=== PATIENT | male | born 1965 | race Two or more races ===

== ENCOUNTER 2018-02-11 01:23 | Inpatient (IN) | payer OTHER ==
[~2018-02-11] VITALS: Ht 182.9 cm; Wt 99.8 kg
--- NOTE | 2018-02-11 01:23 | NUR ---
PT BIBRA from Home C/O Chest pain radiating to R arm, 45 min ago. Pt was given 2 nitro and 2 aspirin 162mg. Pt denies chest pain, states having a headache. AAxO4. NAD. Respirations even and unlabored. PT put on the tele monitor and pulse ox. Pending eval from ER .
[2018-02-11] MEDS ORDERED: NITROGLYCERIN PACKET 1 GM PACKET ONE (02:23)
--- NOTE | 2018-02-11 02:24 | NUR ---
BLOOD DRAWN BY PISTON MAKER.
[2018-02-11] MEDS ORDERED: NITROGLYCERIN PACKET 1 GM PACKET TOP ONE (02:30)
--- NOTE | 2018-02-11 02:35 | NUR ---
XRAY AT BEDSIDE.
[2018-02-11 02:37] LABS: CALCIUM, SERUM 8.3 mg/dL (8.5-10.1); CARBON DIOXIDE 30 mmol/L (21-32); CHLORIDE 105 mmol/L (98-107); CREATININE 0.8 mg/dL (0.6-1.3); GLUCOSE 191 mg/dL (74-106); POTASSIUM 3.7 mmol/L (3.5-5.1); SODIUM SERUM 142 mmol/L (136-145); UREA NITROGEN, BLOOD 15 mg/dL (7-18)
[2018-02-11 02:46] LABS: BASOPHILS # (AUTO) 0.1 /CMM (0.0-0.2); BASOPHILS % (AUTO) 0.8 % (0.0-2.0); HEMATOCRIT 44 % (39-51); HEMOGLOBIN 14.4 g/dL (13.5-17.5); LYMPHOCYTES # (AUTO) 2.6 /CMM (0.8-4.8); LYMPHOCYTES % (AUTO) 25.7 % (20.0-44.0); MEAN CORPUSCULAR HGB CONC 33 g/dl (31.0-36.0); MEAN CORPUSCULAR VOLUME 80 fL (80-96); MONOCYTES # (AUTO) 0.7 /CMM (0.1-1.30); MONOCYTES % (AUTO) 6.5 % (2.0-12.0); NEUTROPHILS # (AUTO) 6.6 /CMM (1.8-8.9); PLATELET COUNT (AUTO) 238 /CMM (150-450); RED BLOOD CELL COUNT(AUTO) 5.44 MIL/uL (4.5-6.0); WHITE BLOOD COUNT (AUTO) 10.1 K/uL (4.3-11.0)
--- NOTE | 2018-02-11 02:55 | NUR ---
Patient is resting comfortably in bed with eyes closed. Easily aroused. VSS. No Chest pain. NAD noted.
--- NOTE | 2018-02-11 03:15 | NUR ---
Patient is resting comfortably in bed with eyes closed. Easily aroused. VSS. NAD noted. Awaiting disposition.
--- NOTE | 2018-02-11 03:30 | NUR ---
MD at bedside discussing results and disposition.
--- NOTE | 2018-02-11 04:10 | NUR ---
PT complaining of 5/10 chest pain, non-radiating. MD notified Orders recieved.
[2018-02-11] MEDS ORDERED: ONDANSETRON HCL/PF 4 MG/2 ML VIAL ONE (04:18)
[2018-02-11] MEDS ORDERED: HYDROMORPHONE INJ 2 MG/ML DISP.SYRIN ONE (04:19)
[2018-02-11] MEDS ORDERED: MORPHINE SULFATE INJ 2 MG/ML DISP.SYRIN IV ONE (04:30)
[2018-02-11] MEDS ORDERED: HYDROMORPHONE INJ 0.5 MG/0.5 ML SYRINGE IV ONE (04:30)
[2018-02-11] MEDS ORDERED: ONDANSETRON HCL/PF - ER 4 MG/2 ML VIAL IV ONE (04:30)
--- NOTE | 2018-02-11 04:42 | NUR ---
Report given to Demetrice for ZACARIAS.
[2018-02-11 05:00] VITALS: BP 123/59
--- NOTE | 2018-02-11 05:00 | NUR ---
RN ADMITTING NOTES RECEIVED REPORT FROM FINANCIAL ANALYSIS CONSULTANT PATEL. Pt ARRIVED TO THE FLOOR VIA GURNEY. WAS ABLE TO AMBULATE TO ROOM BED WITH STEADY GAIT. NO S/S OF ACUTE DISTRESS OR SOB NOTED. Pt IS NOT C/O CP AT THIS MOMENT. Pt IS A/OX4, VERBAL, ABLE TO MAKE NEEDS KNOWN. IV ACCESS ON LFA #18G, SL. ON TELE MONITOR: SR 72. SAFETY MEASURES IN PLACE. BED LOW, LOCKED, HOB ELEVATED, SIDE RAILS UP, CALL LIGHT AND BEDSIDE TABLE WITHIN REACH. WILL CONTINUE TO MONITOR Pt's CONDITION AND SAFETY FOR THE REMAINDER OF THE SHIFT.
[2018-02-11] MEDS ORDERED: MAGNESIUM HYDROXIDE 30 ML UDC PO PRN (05:30)
[2018-02-11] MEDS ORDERED: ACETAMINOPHEN 325 MG TABLET PO PRN (05:30)
[2018-02-11] MEDS ORDERED: ONDANSETRON HCL/PF 4 MG/2 ML VIAL IVP PRN (05:30)
[2018-02-11] MEDS ORDERED: HYDROCODONE/APAP 5/325MG 1 EACH TABLET PO PRN (05:30)
--- NOTE | 2018-02-11 05:30 | NUR ---
RN NOTES Pt REFUSED SKIN ASSESSMENT. PER Pt STATEMENT HAS NO WOUNDS OR BRUISES OR CUTS ANYWHERE ON THE BODY. DENIES HAVING ANY RECENT FALLS. Pt IS AMBULATORY WITH STEADY GAIT AND ABLE TO REPOSITION SELF.
--- NOTE | 2018-02-11 05:41 | NUR ---
RN NOTES CALLED ADMITTING. NOTIFIED THEM THAT Pt's NAME IS LAST NAME & FIRST NAME IS SWITCHED. LAST NAME IS DIONISIO & FIRST NAME IS CARSONVERONICAAM. WILL ANESTHESIOLOGY TEACHER NEW WRIST BAND WHEN READY.
--- NOTE | 2018-02-11 06:33 | NUR ---
RN CLOSING NOTES NO SIGNIFICANT CHANGES IN Pt's CONDITION. Pt IS RESTING IN BED. RESPIRATIONS EVEN AND UNLABORED. REMAINS STABLE PER BASELINE. NO S/S OF ACUTE DISTRESS OR SOB NOTED SINCE ADMISSION. TELE READING SR 73. ALL NEEDS MET AND ATTENDED TO. SAFETY MEASURES IN PLACE. WILL ENDORSE TO DAYSHIFT RN FOR Pt's ZACARIAS.
--- NOTE | 2018-02-11 06:50 | NUR ---
RN NOTES MRSA SWAB SAMPLE COLLECTED. DROPPED OFF WITH LAB ON FLOOR.
--- NOTE | 2018-02-11 07:30 | NUR ---
MS RN OPENING NOTES RECEIVED PATIENT IN STABLE CONDITION. BED SIDE RAILS ARE UP X2. BED IS LOCKED AND LOWERED. CALL LIGHT IS WITHIN REACH. IV LINE IS INTACT AND PATENT. WILL CONTINUE TO MONITOR PATIENT.
[2018-02-11 07:43] LABS: ALANINE AMINOTRANSFERASE 22 U/L (12-78); ALBUMIN 3.3 g/dL (3.4-5.0); ALKALINE PHOSPHATASE 69 U/L (46-116); ASPARTATE AMINOTRANSFERASE 12 U/L (15-37); BILIRUBIN,TOTAL 0.4 mg/dL (0.2-1.0); CALCIUM, SERUM 8.1 mg/dL (8.5-10.1); CARBON DIOXIDE 28 mmol/L (21-32); CHLORIDE 107 mmol/L (98-107); CREATININE 0.8 mg/dL (0.6-1.3); GLUCOSE 125 mg/dL (74-106); MAGNESIUM 2.2 mg/dL (1.8-2.4); PHOSPHORUS 4.2 mg/dL (2.5-4.9); POTASSIUM 4.7 mmol/L (3.5-5.1); SODIUM SERUM 140 mmol/L (136-145); UREA NITROGEN, BLOOD 17 mg/dL (7-18)
[2018-02-11 08:00] VITALS: BP 110/59
[2018-02-11] MEDS: PANTOPRAZOLE 40 MG TABLET.DR PO SCH (08:09)
[2018-02-11] MEDS: NICOTINE PATCH (14MG) 14 MG PATCH.TD24 TD SCH (08:09)
[2018-02-11] MEDS: ASPIRIN 81 MG TAB.CHEW PO SCH (08:09)
[2018-02-11 09:21] LABS: CHOLESTEROL 158 mg/dL (<200); HDL CHOLESTEROL 32 mg/dL (40-60); LDL 109 mg/dL (0-99); THYROID STIMULATING HORMONE 2.298 uIU/mL (0.358-3.74); TRIGLYCERIDES 121 mg/dL (30-150)
[2018-02-11 12:00] VITALS: BP 112/65
[2018-02-11 16:00] VITALS: BP 115/68
--- NOTE | 2018-02-11 19:35 | NUR ---
RN OPENING NOTES RECEIVED REPORT FROM DAYSHIFT RN DARIAN. FOUND Pt WALKING AROUND THE HOSPITAL. NO S/S OF ACUTE DISTRESS OR SOB NOTED. Pt IS REQUESTING TO GO DOWN FOR A SMOKE. Pt HAS SIGNED THE SMOKING WAIVER. TOLD Pt THAT HE MUST WAIT UNTIL A STAFF MEMBER IS FREE TO TAKE HIM DOWN FOR A SMOKE, EXPLAINED THAT SINCE IT IS CHANGE OF SHIFT THE SHOE FITTER's ARE BUSY DOING THEIR VITAL SIGNS FOR THE REST OF THE Pt's HERE. Pt UNDERSTOOD AND SAID HE WILL WAIT. Pt IS NO LONGER ON TELE IS NOW MS. IV ACCESS ON LFA #18G, SL. Pt's FAMILY IS VISITING AT BEDSIDE. WILL CONTINUE TO MONITOR Pt's CONDITION AND SAFETY THROUGHOUT THE SHIFT.
[2018-02-11 20:00] VITALS: BP 138/76
[2018-02-11] MEDS ORDERED: ATORVASTATIN 40 MG TABLET PO SCH (22:00)
--- NOTE | 2018-02-12 06:21 | NUR ---
RN CLOSING NOTES NO SIGNIFICANT CHANGES IN Pt's CONDITION. Pt IS RESTING IN BED. RESPIRATIONS EVEN AND UNLABORED. REMAINS STABLE PER BASELINE. NO S/S OF ACUTE DISTRESS OR SOB NOTED DURING THE NIGHT. ALL NEEDS MET AND ATTENDED TO. SAFETY MEASURES IN PLACE. WILL ENDORSE TO DAYSHIFT RN FOR Pt's ZACARIAS.
[2018-02-12] MEDS: PANTOPRAZOLE 40 MG TABLET.DR PO SCH (06:38)
[2018-02-12 06:58] LABS: BASOPHILS % (AUTO) 0.4 % (0.0-2.0); EOSINOPHILS % (AUTO) 2.4 % (0.0-6.0); HEMATOCRIT 45 % (39-51); HEMOGLOBIN 14.7 g/dL (13.5-17.5); LYMPHOCYTES # (AUTO) 2.8 /CMM (0.8-4.8); LYMPHOCYTES % (AUTO) 31.1 % (20.0-44.0); MEAN CORPUSCULAR HGB CONC 33 g/dl (31.0-36.0); MEAN CORPUSCULAR VOLUME 81 fL (80-96); MONOCYTES # (AUTO) 0.5 /CMM (0.1-1.30); MONOCYTES % (AUTO) 5.9 % (2.0-12.0); NEUTROPHILS # (AUTO) 5.3 /CMM (1.8-8.9); NEUTROPHILS % (AUTO) 60.2 % (43.0-81.0); PLATELET COUNT (AUTO) 228 /CMM (150-450); RED BLOOD CELL COUNT(AUTO) 5.53 MIL/uL (4.5-6.0); WHITE BLOOD COUNT (AUTO) 8.9 K/uL (4.3-11.0)
[2018-02-12 07:21] LABS: CALCIUM, SERUM 8.3 mg/dL (8.5-10.1); CREATININE 0.7 mg/dL (0.6-1.3); MAGNESIUM 2.1 mg/dL (1.8-2.4); PHOSPHORUS 3.2 mg/dL (2.5-4.9); POTASSIUM 4.3 mmol/L (3.5-5.1)
[2018-02-12 08:00] VITALS: BP 140/74
--- NOTE | 2018-02-12 08:00 | NUR ---
MS RN OPENING NOTE RECEIVED PATIENT ASLEEP IN BED AT THIS TIME WITH BED LOCKED IN LOWEST POSITION WITH SIDERAILS UP x2. NO FACIAL GRIMACING NOTED AT THIS TIME. NO SOB OR DISTRESS NOTED. CALL LIGHT WITHIN REACH. NO SOB OR DISTRESS NOTED ON ROOM AIR TOLERATING WELL. ECHO RESULTS PENDING AT THIS TIME. ALERT AND ORIENTED x4. WILL CONTINUE TO MONITOR THROUGHOUT SHIFT.
--- NOTE | 2018-02-12 08:21 | NUR ---
MS RN NOTE DR BALDWIN AT BEDSIDE WITH PATIENT
[2018-02-12] MEDS: ASPIRIN 81 MG TAB.CHEW PO SCH (08:58)
[2018-02-12] MEDS: NICOTINE PATCH (14MG) 14 MG PATCH.TD24 TD SCH (09:00)
--- NOTE | 2018-02-12 09:27 | NUR ---
MS RN NOTE PATIENT REFUSED NICOTINE PATCH AT THIS TIME.
--- NOTE | 2018-02-12 11:38 | NUR ---
ms rn note patient requested for iv to be removed and became agitated with it. iv removed, skin intact. per patient " if in an hour i dont get my echo results back i am discharging myself" will notify md and charge nurse
--- NOTE | 2018-02-12 13:06 | NUR ---
PLEASE DISREGARD LAST NOTE
--- NOTE | 2018-02-12 13:06 | NUR ---
boat garnisher note patient discharged in stable condition at this time. alert and oriented X4. no facial grimacing noted for pain. no sob or distress noted on room air tolerating well. all nursing care needs attended to as needed. all due medications given as ordered. all discharge instructions given to patient, patient able to verbalize teach back. prescription given to patient, medication education given. iv removed, skin intact. all belongings accounted for and with patient upon discharge. patient stated " i can no longer stay in this room anymore im going to go crazy i just want to go home". notified md about patient leaving ama. charge nurse and supervisor furnace room aware. left via private car with and family member. Addendum: 02/12/18 at 1314 by BARB BRADSHAW RN incident report done Unique Id: [id number]
--- NOTE | 2018-02-12 13:10 | NUR ---
INSTRUMENTATION TECHNOLOGIST NOTE SPOKE WITH DR BALDWIN IN REGARDS TO PATIENT WANTING TO LEAVE. PATIENT DISCHARGED TO HOME IN STABLE CONDITION WITH ALL BELONGINGS WITH PATIENT UPON DISCHARGE. PRESCRIPTION GIEVN TO PATIENT. ALL DISCHARGE INSTRUCTIONS GIVEN TO PATIENT AND FAMILY MEMBER AT BEDSIDE. PATIENT AND FAMILY MEMEBER ABLE TO RETURN TEACH BACK FOR INSTRUCTIONS. IV REMOVED, SKIN INTACT NO WOUND DOCUMENTATION NEEDED. ALL NURSING CARE NEEDS ATTENDED TO NEEDED. ALL DUE MEDICATIONS GIVEN ORDERED BY MD. NO FACIAL GRIMACING NOTED FOR PAIN AT THIS TIME. NO SOB OR DISTRESS NOTED ON ROOM AIR TOLERATING WELL ON ROOM AIR AT 96%. MEDICATION EDUCATION GIVEN FOR PRESCRIPTION. FOLLOW UP WITH PCP AND SPECIAL NEEDS BUS DRIVER OUTPATIENT. LEFT VIA PRIVATE CAR WITH & FAMILY MEMBER Addendum: 02/12/18 at 1544 by BARB BRADSHAW RN PATIENT WAS CLEARED BY SPECIAL NEEDS BUS DRIVER-DR SOFIA
== END 2018-02-12 13:04 | disposition home or self-care (01) | DRG 206 ==
LOC: ER 01:38 → TELE 04:37 → MED 15:44
PROVIDERS: ADMIT Nurse Practitioner Acute Care; ATTEND Internal Medicine
DX: M94.0 Chondrocostal junction syndrome [Tietze] (principal); E44.1 Mild protein-calorie malnutrition; E78.5 Hyperlipidemia, unspecified; F17.210 Nicotine dependence, cigarettes, uncomplicated; E66.9 Obesity, unspecified; Z68.29 Body mass index [BMI] 29.0-29.9, adult; E11.9 Type 2 diabetes mellitus without complications
CPT/HCPCS: 36415; 71045-TC; 80048-TC; 80053-TC; 80061-TC; 83735-TC; 84100-TC; 84443-TC; 84484-TC; 85025-TC; 85730-TC; 87081-TC; 93307-TC; G0378; J1170; J2405